=== PATIENT | male | born 1955 | race Caucasian/White ===

== ENCOUNTER 2022-02-07 16:58 | Emergency (ER) | payer OTHER ==
[2022-02-07] MEDS ORDERED: Sodium Chloride 0.9% 1000 ML 1,000 ML IV STA (17:09)
[2022-02-07] MEDS ORDERED: Sodium Chloride 0.9% 1000 ML 1,000 ML ONE (17:15)
--- NOTE | 2022-02-07 17:24 | ERPHSYRPT ---
- History of Present Illness Time Seen by Provider: 02/07/22 17:21 Source: patient, family Exam Limitations: no limitations Patient Subjective Stated Complaint: Dizziness Triage Nursing Assessment: Patient ambulated back to ED with unsteady gait. P atient A+O x3. Patient's skin pink, warm and dry. Patient complains of dizziness that started around 1545. Patient states he was walking crooked and everything around him was spinning. Patient complains of numbness and tingling in head and top of shoulders. Patient denies pain or discomfort. Physician History: Patient complains of dizziness that started around 1545. Patient states he was walking crooked and everything around him was spinning. Patient complains of numbness and tingling in head and top of shoulders. Patient denies pain or discomfort. Timing/Duration: today Severity: moderate Associated Symptoms: denies symptoms Allergies/Adverse Reactions: No Known Drug Allergies Allergy (Unverified 02/07/22 17:03) Hx Influenza Vaccination/Date Given: No Hx Pneumococcal Vaccination/Date Given: No Immunizations Up to Date: Yes Travel Risk - International Travel Have you traveled outside of the country in past 3 weeks: No - Coronavirus Screening Are you exhibiting any of the following symptoms?: No Close contact with a COVID-19 positive Pt in past 14-21 Days: No - Vaccine Status Have you recieved a Covid-19 vaccination: Yes Investigative Analyst: Help/Systems - Vaccination Dates Date of 2cond Vaccination (if applicable): 12/17/2020 - Review of Systems Constitutional: Weakness, No Fever, No Chills Eyes: No Symptoms Ears, Nose, & Throat: No Symptoms Respiratory: No Cough, No Dyspnea Cardiac: No Chest Pain, No Edema, No Syncope Abdominal/Gastrointestinal: No Abdominal Pain, No Nausea, No Vomiting, No Diarrhea Genitourinary Symptoms: No Dysuria Musculoskeletal: No Back Pain, No Neck Pain Skin: No Rash Neurological: Dizziness, Sensory Changes (tingling on head and shoulders), No Focal Weakness Psychological: No Symptoms Endocrine: No Symptoms All Other Systems: Reviewed and Negative - Past Medical History Pertinent Past Medical History: No Neurological History: No Pertinent History ENT History: No Pertinent History Cardiac History: No Pertinent History Respiratory History: No Pertinent History Endocrine Medical History: No Pertinent History Musculoskeletal History: No Pertinent History GI Medical History: No Pertinent History History: No Pertinent History Psycho-Social History: No Pertinent History Male Reproductive Disorders: No Pertinent History - Past Surgical History Past Surgical History: No Neuro Surgical History: No Pertinent History Cardiac: No Pertinent History Respiratory: No Pertinent History Gastrointestinal: No Pertinent History Genitourinary: No Pertinent History Musculoskeletal: No Pertinent History Male Surgical History: No Pertinent History - Social History Smoking Status: Current every day smoker How long have you smoked: years Exposure to second hand smoke: No Drug Use: none Patient Lives Alone: No - Nursing Vital Signs Nursing Vital Signs: Initial Vital Signs Temperature 97.0 F 02/07/22 17:04 Pulse Rate 65 02/07/22 17:04 Respiratory Rate 18 02/07/22 17:04 Blood Pressure 166/85 02/07/22 17:04 O2 Sat by Pulse Oximetry 99 02/07/22 17:04 Pain Scale Pain Intensity 0 - Physical Exam General Appearance: no apparent distress, alert Eye Exam: PERRL/EOMI, eyes nml inspection Ears, Nose, Throat Exam: normal ENT inspection, TMs normal, pharynx normal, moist mucous membranes Neck Exam: normal inspection, non-tender, supple, full range of motion Respiratory Exam: normal breath sounds, lungs clear, No respiratory distress Cardiovascular Exam: regular rate/rhythm, normal heart sounds, normal peripheral pulses Gastrointestinal/Abdomen Exam: soft, normal bowel sounds, No tenderness, No mass Back Exam: normal inspection, normal range of motion, No CVA tenderness, No vertebral tenderness Extremity Exam: normal inspection, normal range of motion, pelvis stable Neurologic Exam: alert, oriented x 3, cooperative, normal mood/affect, nml cerebellar function, nml station & gait, sensation nml, No motor deficits Skin Exam: normal color, warm, dry, No rash Lymphatic Exam: No adenopathy SpO2: 99 - Course Nursing assessment & vital signs reviewed: Yes EKG Interpreted by Me: Sinus Rhythm - Radiology Exams Chest X-ray Interpretation: Reviewed by me, Negative, No Pneumonia - CT Exams Head CT Interpretation: Tele-radiologist Report Ordered Tests: Active Orders 24 hr Category Date Time Status EKG-ER Only STAT Care 02/07/22 17:09 Active CHEST 2 VIEWS (PA AND LAT) Stat Exams 02/07/22 17:09 Taken HEAD WITHOUT CONTRAST [CT] Stat Exams 02/07/22 17:09 Taken CBC W DIFF Stat Lab 02/07/22 17:25 Completed CMP Stat Lab 02/07/22 17:25 Completed TROPONIN Q3H Lab 02/07/22 17:25 Completed TROPONIN Q3H Lab 02/07/22 20:15 Ordered TROPONIN Q3H Lab 02/07/22 23:15 Ordered TROPONIN Q3H Lab 02/08/22 02:15 Ordered TROPONIN Q3H Lab 02/08/22 05:15 Ordered UA W/RFX CULTURE Stat Lab 02/07/22 18:13 Received Medication Summary Discontinued Medications Generic Name Dose Route Start Last Admin Trade Name Jeremiah PRN Reason Stop Dose Admin Sodium Chloride 1,000 mls @ 999 mls/hr 02/07/22 17:09 02/07/22 18:29 Sodium Chloride 0.9% 1000 Ml IV 02/07/22 18:09 Infused .Q1H1M STA Infusion Sodium Chloride Confirm 02/07/22 17:15 Sodium Chloride 0.9% 1000 Ml Administered 02/07/22 17:16 Dose 1,000 mls @ ud .ROUTE .STK-MED ONE Ondansetron HCl 4 mg 02/07/22 17:26 02/07/22 17:29 Ondansetron Hcl 4 Mg/2 Ml Vial IV 02/07/22 17:27 4 mg STAT ONE Administration Ondansetron HCl Confirm 02/07/22 17:28 Ondansetron Hcl 4 Mg/2 Ml Vial Administered 02/07/22 17:29 Dose 4 mg .ROUTE .STK-MED ONE Lab/Rad Data: Laboratory Result Diagrams 02/07/22 17:25 02/07/22 17:25 Laboratory Results 02/07/22 02/07/22 02/07/22 Range/Units 17:25 17:25 17:25 WBC 8.5 (4.0-10.5) x10^3/uL RBC 4.44 (4.1-5.6) x10^6/uL Hgb 13.3 (12.5-18.0) g/dL Hct 40.5 L (42-50) % MCV 91.2 (78-100) fL MCH 30.0 (26-32) pg MCHC 32.8 (32-36) g/dL RDW 12.7 (11.5-14.0) % Plt Count 323 (150-450) x10^3/uL MPV 8.6 (7.5-11.0) fL Gran % 53.1 (36.0-66.0) % Immature Gran % (Auto) 0.1 (0.00-0.4) % Nucleat RBC Rel Count 0.0 (0.00-0.1) % Eos # (Auto) 0.39 (0-0.5) x10^3/uL Immature Gran # (Auto) 0.01 (0.00-0.03) x10^3u/L Absolute Lymphs (auto) 2.60 (1.0-4.6) x10^3/uL Absolute Monos (auto) 0.91 (0.0-1.3) x10^3/uL Absolute Nucleated RBC 0.00 (0.00-0.01) x10^3u/L Lymphocytes % 30.6 (24.0-44.0) % Monocytes % 10.7 (0.0-12.0) % Eosinophils % 4.6 (0.00-5.0) % Basophils % 0.9 (0.0-0.4) % Absolute Granulocytes 4.51 (1.4-6.9) x10^3/uL Basophils # 0.08 (0-0.4) x10^3/uL Sodium 136 L (137-145) mmol/L Potassium 3.9 (3.5-5.1) mmol/L Chloride 103 (98-107) mmol/L Carbon Dioxide 24 (22-30) mmol/L Anion Gap 12.8 (5-15) MEQ/L BUN 15 (9-20) mg/dL Creatinine 0.84 (0.66-1.25) mg/dL Estimated GFR > 60.0 ML/MIN Glucose 102 (74-106) mg/dL Calcium 9.4 (8.4-10.2) mg/dL Total Bilirubin 0.40 (0.2-1.3) mg/dL AST 25 (17-59) U/L ALT 18 (0-50) U/L Alkaline Phosphatase 83 (38-126) U/L Troponin I < 0.012 (0.000-0.034) ng/mL Serum Total Protein 7.0 (6.3-8.2) g/dL Albumin 4.2 (3.5-5.0) g/dL - Progress Progress: improved Counseled pt/family regarding: lab results, diagnosis, need for follow-up, rad results - Departure Departure Disposition: Home Clinical Impression: Elevated blood pressure reading in office with diagnosis of hypertension Vertigo, benign positional Qualifiers: Laterality: unspecified laterality Qualified Code(s): H81.10 - Benign paroxysmal vertigo, unspecified ear Condition: Stable Critical Care Time: No Referrals: RANDALL GONZALEZ MD [Primary Care Provider] - Follow up/PCP as directed Instructions: High Blood Pressure in Adults, Vertigo (a Type of Dizziness) (DC) Additional Instructions: Discharge/Care Plan GETACHEW GREGORY was seen on 02/07/22 in the Emergency Room. The patient was counseled regarding Diagnosis,Lab results, Imaging studies, need for follow up and when to return to the Emergency Room. Prescriptions given: Discharge Note I have spoken with the patient and/or caregivers. I have explained the patient's condition, diagnosis and treatment plan based on the information available to me at this time. I have answered the patient's and/or caregiver's questions and addressed any concerns. The patient and/or caregivers have as good understanding of the patient's diagnosis, condition and treatment plan as can be expected at this point. The vital signs have been stable. The patient's condition is stable and appropriate for discharge from the emergency department. The patient will pursue further outpatient evaluation with the primary care physician or other designated or consulting physician as outlined in the discharge instructions. The patient and/or caregivers are agreeable to this plan of care and follow-up instructions have been explained in detail. The patient and/or caregivers have received these instruction. The patient/and or caregivers are aware that any significant change in condition or worsening of symptoms should prompt an immediate return to this or the closest emergency department or call 911. GETACHEW GREGORY was seen on 02/07/22 n the Emergency Room. At that time you were treated for an emergent condition, during your visit Laboratory, Radiology and/or other procedures may have been ordered. It is very important that you follow-up with your Primary Care Physician RANDALL GONZALEZ within the next 24-48 hours to review your Emergency Room visit and the final results of testing that was ordered. Some test results such as Urine Cultures, Blood Cultures, and other cultures if ordered will not be finalized for 24-48 hours. If you do not have a Primary Care Provider please call the medical records department at [phone] ext [phone] to obtain a copy of your results or you may sign into our patient portal to obtain these results by visiting us @ [email or web address] and completing the following steps: 1. Click on the Patient Portal link 2. Click the Patient Self Enrollment Link to complete the enrollment form and entering your 3. Once the enrollment form is completed you will receive an email with a temporary ID and password at the email address you provided. 4. Next choose a user name and password. Your user name must be at least 4 characters long and your password must be at least 4 characters long. 5. Choose a security question from the list and provide your answer to the question. If you already have signed into the Health Portal you may access your Health Care Information 12/04 by the following steps: 1. Login to our website @ [email or web address] 2. Enter your original user name and password. FAQS The [facility] Health Portal is an online tool that contains your Lab Results, Radiology Reports, Visit History, Discharge Instructions and Health Summary Lab and Radiology Results will not be available for 72 hours on the portal. The Portal is a secure site, passwords are encryted and URLs are re-written so they cannot be copied and pasted. You and authorized family members are the only ones who can access your Portal. Also there is a timeout feature that protects your information if you leave the Portal page open. If you have technical difficulty please use the Contact Us link on the page this will allow you to submit any questions you have regarding the Portal or you may contact the Medical Record Department at [phone]. Prescriptions: Meclizine HCl 25 mg [Antivert 25 mg] 25 mg PO TID #15 tablet
[2022-02-07 17:26] LABS: Absolute Neutrophil Ct (ANC) 4.51 x10^3/uL (1.4-6.9); Basophil (Absolute #) 0.08 x10^3/uL (0-0.4); Eosinophil % 4.6 % (0.00-5.0); Eosinophil (Absolute #) 0.39 x10^3/uL (0-0.5); Hematocrit 40.5 % (42-50); Hemoglobin 13.3 g/dL (12.5-18.0); Lymphocytes % 30.6 % (24.0-44.0); Mean Cell Volume 91.2 fL (78-100); Mean Corpuscular Hgb Concent. 32.8 g/dL (32-36); Mean Platelet Volume 8.6 fL (7.5-11.0); Monocyte (Absolute #) 0.91 x10^3/uL (0.0-1.3); Monocytes % 10.7 % (0.0-12.0); Neutrophil % 53.1 % (36.0-66.0); Platelet Count 323 x10^3/uL (150-450); Red Blood Count 4.44 x10^6/uL (4.1-5.6); Red Cell Distribution Width 12.7 % (11.5-14.0); White Blood Count 8.5 x10^3/uL (4.0-10.5)
[2022-02-07] MEDS ORDERED: Zofran 4 MG/2 ML VIAL IV ONE (17:26)
[2022-02-07] MEDS ORDERED: Zofran 4 MG/2 ML VIAL ONE (17:28)
[2022-02-07 17:45] LABS: ALBUMIN 4.2 g/dL (3.5-5.0); ALKALINE PHOSPHATASE 83 U/L (38-126); ANION GAP 12.8 MEQ/L (5-15); BLOOD UREA NITROGEN 15 mg/dL (9-20); CHLORIDE 103 mmol/L (98-107); Calcium 9.4 mg/dL (8.4-10.2); Carbon Dioxide 24 mmol/L (22-30); Creatinine 1 0.84 mg/dL (0.66-1.25); EST GLOMERULAR FILTRATION RATE > 60.0 ML/MIN; Glucose 102 mg/dL (74-106); Potassium 3.9 mmol/L (3.5-5.1); SGOT/AST 25 U/L (17-59); SGPT/ALT 18 U/L (0-50); SODIUM 136 mmol/L (137-145)
[2022-02-07] MEDS ORDERED: ANTIVERT 25 MG ONE (18:40)
[2022-02-07] MEDS ORDERED: ANTIVERT 25 MG PO ONE (18:41)
[2022-02-07 18:42] LABS: Appearance CLEAR (CLEAR); Bilirubin NEGATIVE (NEGATIVE); Glucose NEGATIVE (NEGATIVE); Ketones NEGATIVE (NEGATIVE); Specific Gravity >=1.030 (1.005-1.025)
[2022-02-07 18:43] LABS: Dipstick done @ ? MAIN LAB; Nitrite NEGATIVE (NEGATIVE); Ph 6.5 (5-6); Protein,Urine Dip NEGATIVE (Negative); RBC TRACE NON-HEM Ery/ul (0-5); Urobilinogen 0.2 mg/dL (0-1)
[2022-02-07] MEDS ORDERED: ANTIVERT 25 MG PO PRN (18:43)
[2022-02-07 18:47] LABS: INFLUENZA A NEGATIVE (NEGATIVE); INFLUENZA B NEGATIVE (NEGATIVE); RESPIRATORY SYNCTIAL VIRUS NEGATIVE (Negative); SARS-CoV-2 Xpert Express NEGATIVE (NEGATIVE)
[2022-02-07 18:51] LABS: RBC 0-2 /HPF (0-2); Urine Cultured Indicated? NO
[2022-02-07 19:00] VITALS: BP 170/65; PULSE 62; O2SAT 98
--- NOTE | 2022-02-07 19:42 | XRAY ---
Indication: Dizziness and nausea. Multiple contiguous axial images obtained through the head without contrast. Comparison: None. Age-appropriate global atrophy and remote lacunar infarct right external capsule. No acute intracranial hemorrhage, abnormal extra-axial fluid collection, or mass effect. Fourth ventricle is midline without hydrocephalus. Wilder-white matter differentiation is preserved. Bony calvarium intact. Visualized paranasal sinuses and mastoid air cells are clear. Impression: Remote lacunar infarct right external capsule. Remaining CT head without contrast exam is negative. Comment: Preliminary interpretation made by [facility]. No critical discrepancy.
--- NOTE | 2022-02-07 19:44 | XRAY ---
Indication: Dizziness and nausea. Comparison: April 04, 2014. PA/lateral chest again hyperinflated with new minimal right posterior gutter infiltrate versus atelectasis. Remaining heart and lungs unremarkable. Bony thorax intact with mild osteopenia and degenerative changes.
== END 2022-02-07 19:01 | disposition home or self-care (01) ==
LOC: ED 16:58
DX: H81.10 Benign paroxysmal vertigo, unspecified ear (principal); R03.0 Elevated blood-pressure reading, without diagnosis of hypertension; R20.2 Paresthesia of skin; Z72.0 Tobacco use
CPT/HCPCS: 0241U; 36000; 36415; 70450; 71046; 80053; 81015; 84484; 85025; 93005; 96360; 96374; 99284; J2405; A9270-GY